=== PATIENT | male | born 1950 | race Caucasian/White ===

== ENCOUNTER → 2021-12-25 11:06 | Outpatient (BNVA) | payer OTHER, SELFPAY | PROVIDERS: Visit Provider Specialist | DX: G40.109 Localization-related (focal) (partial) symptomatic epilepsy and epileptic syndromes with simple partial seizures, not intractable, without status epilepticus (principal); Z96.82 Presence of neurostimulator; Z45.42 Encounter for adjustment and management of neurostimulator | CPT/HCPCS: 95970; 99204 ==

== ENCOUNTER → 2022-02-05 12:58 | Outpatient (BNVA) | payer OTHER, SELFPAY | PROVIDERS: Visit Provider Thoracic Surgery (Cardiothoracic Vascular Surgery) | DX: Z96.89 Presence of other specified functional implants (principal) | CPT/HCPCS: 99203 ==

== ENCOUNTER 2022-02-26 05:40 | Day surgery (SDC) | payer OTHER, SELFPAY ==
[2022-02-25 14:46] VITALS: BMI 25.0
--- NOTE | 2022-02-26 05:55 | XRR_ITS ---
PROCEDURE INFORMATION: Exam: XR Chest Exam date and time: 02/26/2022 6:36 AM Age: 71 years old Clinical indication: Screening exam; Pre-operative exam; Cardiovascular screening; Prior surgery; Surgery type: Vns; Additional info: Vns generator exchange TECHNIQUE: Imaging protocol: Radiologic exam of the chest. Views: 1 view. Other technique: Frontal portable upright view of the chest. COMPARISON: CR XR chest 2V* [id number] 07/03/2015 1:47 PM FINDINGS: Tubes, catheters and devices: Left cervical neural stimulator. Lungs: Mild left lateral basilar linear subsegmental atelectasis/scarring. The lungs are otherwise peripherally clear bilaterally. The pulmonary vasculature is normal. Pleural spaces: No pleural effusion. No pneumothorax. Heart/Mediastinum: The heart is normal in size and contour. Mediastinum: Stable. Bones/joints: Stable. XR/XR chest 1V portable [id number] IMPRESSION: Mild left lateral basilar linear subsegmental atelectasis/scarring.
[2022-02-26 06:05] VITALS: BP 139/79; PULSE 65; RESP 18; TEMP 36.7; O2SAT 97
--- NOTE | 2022-02-26 06:23 | W.PM.OPSUD ---
Surgery/Procedure H&P Update DATE OF PROCEDURE: February 26, 2022 DATE H&P PERFORMED: 02/05/22 H&P UPDATE INFORMATION: I have reviewed H&P completed within last 30 days, I have examined patient prior to procedure and No changes to prior documentation PREOP DIAGNOSIS: Vagal nerve stimulator generator end of service PLANNED PROCEDURE: Operation Date: 02/26/22 07:00 Proposed Procedures p VNS Generator Exchange/G40.909 [id number](Not Applicable) - Lamont Dimas MD
[2022-02-26] MEDS: sodium chloride 0.9% 1,000 ML 30 ML IV (06:30)
[2022-02-26 06:42] LABS: Basophils % 0.5 %; Eosinophils # 0.2 10^3/uL (0.0-0.8); Eosinophils % 3.5 %; Hematocrit 45.2 % (42.0-52.0); Hemoglobin 14.8 g/dL (11.7-16.6); Lymphocytes # 1.7 10^3/uL (0.8-4.8); Lymphocytes % 25.6 %; Mean Corpuscular HGB Conc 32.7 g/dL (30.0-36.0); Mean Corpuscular Hemoglobin 31.1 pg (28.0-34.0); Mean Platelet Volume 9.8 fL (7.4-10.4); Monocytes # 0.7 10^3/uL (0.2-0.9); Monocytes % 10.6 %; Neutrophils # 3.88 10^3/uL (1.8-7.7); Neutrophils % 59.3 %; Nucleated Red Blood Cells % 0 %; Platelet Count 229 10^3/cmm (130-400); Red Blood Count 4.76 10^6/uL (4.1-5.3); White Blood Count 6.5 10^3/uL (4.0-10.0)
[2022-02-26 07:01] LABS: Blood Urea Nitrogen 21 mg/dL (8-23); Calcium 9.2 mg/dL (8.5-10.5); Carbon Dioxide 24 mmol/L (22-29); Chloride 106 mmol/L (98-107); Glomerular Filtration Rate 59.9 mL/min (90-130); Glucose 90 mg/dL (65-115); Osmolality Calculated 293 mOsm/kg (285-295); Sodium 140 mmol/L (136-145)
[2022-02-26] MEDS: ceFAZolin 2,000 MG in sodium chloride 0.9% (plus) 50 ML 100 MG IV (07:05)
--- NOTE | 2022-02-26 07:05 | ANES.PREANE2 ---
Pre-Anesthetic Assessment Height/Weight: Height 1.65 m Weight 68.039 kg Temp Pulse Resp BP Pulse Ox O2 Del Method 98.0 F 65 18 139/79 97 02/26/22 06:05 02/26/22 06:05 02/26/22 06:05 02/26/22 06:05 02/26/22 06:05 02/26/22 06:10 Preop Diagnosis: Vagal nerve stimulator generator end of service Operation Date: 02/26/22 07:00 Proposed Procedures p VNS Generator Exchange/G40.909 [id number](Not Applicable) - Lamont Dimas MD Familial anesthetic complications: None Was Beta Tonio taken within 24 hours: N/A Was Clonidine taken within 24 hours: N/A Last intake: Intake Last Liquid Date 02/25/22 Last Liquid Time 20:00 Last Solid Date 02/25/22 Last Solid Time 19:00 Social No alcohol and No tobacco former smoker Exam alert, oriented x 3, clear to auscultation bilaterally and regular rate & rhythm Airway Mallampati: Class II Dentition: false CV/HEM Hypertension Metabolic Hyperlipidemia Neuropsych Seizure Anesthetic Plan ASA status: 3 Anesthesia: MAC Risk of > 500 ml blood loss (7ml/kg in children): No Medications/Allergies Home Medications Medication Instructions Recorded Confirmed Last Taken Type aspirin 81 mg tablet,delayed 81 mg PO DAILY 12/25/21 02/25/22 02/18/22 History release cetirizine 10 mg tablet 10 mg PO DAILY PRN Allergy Symptoms 12/25/21 02/26/22 02/25/22 History finasteride 5 mg tablet 5 mg PO DAILY 12/25/21 02/26/22 02/25/22 History lamotrigine 200 mg tablet 200 mg PO BID 12/25/21 02/26/22 02/25/22 History (Lamictal) simvastatin 20 mg tablet 20 mg PO DAILY 12/25/21 02/26/22 02/25/22 History amlodipine 2.5 mg tablet 7.5 mg PO DAILY 02/05/22 02/26/22 02/25/22 History levetiracetam 1,000 mg tablet 1,500 mg PO BID 02/05/22 02/26/22 02/25/22 History (Keppra) memantine 10 mg tablet (Namenda) 20 mg PO BID 02/05/22 02/26/2202/25/22 History polyethylene glycol 3350 17 4 g PO DAILY PRN Diarrhea 02/05/22 02/25/22 Unknown History gram/dose oral powder Allergies Allergy/AdvReac Type Severity Reaction Status Date / Time No Known Allergies Allergy Unverified 02/05/22 13:47 [facility] Anesthesia Social History Smoking and tobacco status: former smoker Quit status (tobacco): has quit using tobacco Year quit tobacco: 2017 smoked 3/4 pack Former quit date comment: Smoked 50 years Alcohol intake: former Lives independently: Yes Household members: other Housing: House Marital status: / Number of children: 2 service: Yes Pets and animals: No Data Anesthesia : 02/26/22 06:30 02/26/22 06:30 Short CBC 02/26/22 Range/Units 06:30 WBC 6.5 (4.0-10.0) 10^3/uL Hgb 14.8 (11.7-16.6) g/dL Hct 45.2 (42.0-52.0) % MCV 95.0 H (80-94) fl Plt Count 229 (130-400) 10^3/cmm Neut % (Auto) 59.3 % Neut # (Auto) 3.88 (1.8-7.7) 10^3/uL BMP 02/26/22 06:30 Sodium 140 Potassium 4.0 Chloride 106 Carbon Dioxide 24 BUN 21 Creatinine 1.2 Glucose 90 Calcium 9.2 Cardiac Studies: No Data to Display
[2022-02-26 07:06] LABS: Add Urine Microscopic? NO; Charge for UA Resulting for Rev
[2022-02-26] MEDS: ceFAZolin 1,000 mg SDV 1000 MG IRRIGATION (07:31)
[2022-02-26] MEDS: lidocaine 1% INJ 20 mL SUBCUT (07:31)
[2022-02-26 07:39] LABS: Bilirubin Urine Neg (Negative); Blood Urine Neg (Negative); Glucose Urine UA Norm (Normal); Ketones Urine 1+ (Negative); Leukocyte Esterase Urine Negative (Negative); Nitrate Urine Negative (Negative); Protein Urine Neg (Negative); Urine Appearance Clear (CLEAR); Urine Color Yellow (Yellow); Urobilinogen Urine Norm (Negative); pH Urine 5 (5-7)
--- NOTE | 2022-02-26 08:09 | PM.OP ---
Operative Report Date of procedure: February 26, 2022 Pre-op diagnosis: Preop Diagnosis Vagal nerve stimulator generator end of service Procedure done: Vagal nerve stimulator generator exchange Implants: Vagal nerve stimulator generator Specimens removed/disposition: Old vagal nerve stimulator generator Surgeon: Lamont Dimas Anesthesia: MAC and Local (1% lidocaine plain) Complications: None Condition: stable Disposition: same day Brief History: Mr. Monzon is a 71-year-old gentleman referred to our service by Dr. Paulson for VNS generator exchange with his current device near end of service. This was originally implanted September 04, 2015. Rationale for generator exchange was carefully discussed. Proper consents were reviewed and signed. Procedure: Mr. Monzon was taken the operating room suite and Positioned in the Supine Position. He Underwent IV Conscious Sedation Anesthesia Monitoring. His Entire Left Upper Chest Was Sterilely Prepped and Draped. Appropriate Timeout Was Completed and Confirmed. 1% Lidocaine Was Infiltrated through the Old Incision Site of His Prior Generator Implantation. #15 Scalpel Blade Was Utilized to Incise the Skin through the Subtendinous Tissues to near the Pseudocapsule. Capsule Was Then Carefully Opened with a #15 Scalpel Blade and Metzenbaum Scissors Exposing the Generator. Care Was Taken to Protect the lead. Old generator was delivered. It was disengaged from lead and new generator was brought into the field and connected. On field interrogation was then performed confirming appropriate function with residual parameters programmed into the new device. Device was placed into the pocket. Wound was irrigated with antibiotic solution. Hemostasis confirmed. Wound was then closed with 2 layer of 3-0 Vicryl suture with the skin being reapproximated with 4-0 Monocryl suture. Dermabond was applied to the skin. Sterile pressure dressing was then applied and secured. Mr. Monzon, tolerated procedure well. He was awakened from IV conscious sedation and transported back to the Outpatient Surgery department in stable condition. I did agency legal counsel with his daughter at completion of the procedure. [employer] VNS Generator: Model # 1000 Serial #: [id number] Lead impedance 2346 ohms Auto stimulation threshold 30% Frequency 20 Hz Duty 12% On: 21 seconds off: 3 minutes
[2022-02-26 08:19] VITALS: BP 144/83; PULSE 61; RESP 14; TEMP 36.5; O2SAT 96
[2022-02-26 08:24] VITALS: BP 151/81; PULSE 57; RESP 15; O2SAT 95
[2022-02-26 08:27] VITALS: BP 150/82; PULSE 59; RESP 14; O2SAT 95
--- NOTE | 2022-02-26 14:27 | ANE.PACU2 ---
Inpatient post-anesthesia follow up: Airway intact: Yes Vital signs: Temperature 97.7 F Pulse Rate 59 Respiratory Rate 14 Blood Pressure 150/82 Pulse Oximetry 95 Oxygen Delivery Me thod Room Air Oxygen Flow Rate Fraction of Inspir ed Oxygen Hydration adequate: Yes Nausea and vomiting: No Pain level: 1 Mental status: Baseline
== END 2022-02-26 09:45 | disposition home or self-care (01) ==
PROVIDERS: PCP Specialist; Visit Provider Thoracic Surgery (Cardiothoracic Vascular Surgery)
PROC: (CPT 61885; principal; 2022-02-26 07:00)
DX: Z45.42 Encounter for adjustment and management of neurostimulator (principal); Z87.891 Personal history of nicotine dependence; I10 Essential (primary) hypertension; E78.5 Hyperlipidemia, unspecified; Z79.82 Long term (current) use of aspirin; F17.210 Nicotine dependence, cigarettes, uncomplicated
CPT/HCPCS: 61885; 36415; 71045; 80048; 81003; 85025; C1767; J0690; J2370; J3010; J7030

== ENCOUNTER → 2022-03-07 14:12 | Outpatient (BNVA) | payer OTHER, SELFPAY | PROVIDERS: PCP Nurse Practitioner Family; Visit Provider Nurse Practitioner Family | DX: Z96.89 Presence of other specified functional implants (principal) | CPT/HCPCS: 99213 ==

== ENCOUNTER → 2022-04-16 14:21 | Outpatient (BNVA) | payer OTHER, SELFPAY | PROVIDERS: PCP Nurse Practitioner Family; Visit Provider Specialist | DX: G40.109 Localization-related (focal) (partial) symptomatic epilepsy and epileptic syndromes with simple partial seizures, not intractable, without status epilepticus (principal); Z96.82 Presence of neurostimulator; Z45.42 Encounter for adjustment and management of neurostimulator | CPT/HCPCS: 95971; 99214 ==

== ENCOUNTER → 2022-10-25 14:00 | Outpatient (BNVA) | payer OTHER, SELFPAY | PROVIDERS: PCP Nurse Practitioner Family; Visit Provider Specialist | DX: G40.109 Localization-related (focal) (partial) symptomatic epilepsy and epileptic syndromes with simple partial seizures, not intractable, without status epilepticus (principal); Z96.82 Presence of neurostimulator; Z45.42 Encounter for adjustment and management of neurostimulator | CPT/HCPCS: 95971; 99214 ==

== ENCOUNTER → 2022-11-22 13:27 | Outpatient (BNVA) | payer OTHER, SELFPAY | PROVIDERS: PCP Nurse Practitioner Family; Visit Provider Specialist | DX: G40.109 Localization-related (focal) (partial) symptomatic epilepsy and epileptic syndromes with simple partial seizures, not intractable, without status epilepticus (principal) | CPT/HCPCS: 95972; 99212 ==

== ENCOUNTER → 2022-12-30 07:56 | Outpatient (BNVA) | payer OTHER, SELFPAY | PROVIDERS: Visit Provider Specialist | DX: G40.109 Localization-related (focal) (partial) symptomatic epilepsy and epileptic syndromes with simple partial seizures, not intractable, without status epilepticus; Z45.42 Encounter for adjustment and management of neurostimulator; Z96.82 Presence of neurostimulator | CPT/HCPCS: 95971; 99214 ==

== ENCOUNTER → 2023-07-01 13:37 | Outpatient (BNVA) | payer OTHER, SELFPAY | PROVIDERS: PCP Family Medicine; Visit Provider Specialist | DX: G40.109 Localization-related (focal) (partial) symptomatic epilepsy and epileptic syndromes with simple partial seizures, not intractable, without status epilepticus (principal); Z96.89 Presence of other specified functional implants; G31.84 Mild cognitive impairment of uncertain or unknown etiology | CPT/HCPCS: 99214 ==

== ENCOUNTER → 2023-09-19 12:58 | Outpatient (BNVA) | payer OTHER, SELFPAY | PROVIDERS: PCP Family Medicine; Visit Provider Specialist | DX: Z96.89 Presence of other specified functional implants (principal); G40.109 Localization-related (focal) (partial) symptomatic epilepsy and epileptic syndromes with simple partial seizures, not intractable, without status epilepticus; G31.84 Mild cognitive impairment of uncertain or unknown etiology | CPT/HCPCS: 95970; 95971; 96116; 99214; 99215 ==

== ENCOUNTER 2023-12-03 12:48 | Outpatient (CLI) | payer OTHER, SELFPAY ==
--- NOTE | 2023-12-03 12:52 | CT_ITS ---
WS: [id number] CT CALCIUM SCORE REASON FOR VISIT: HYPERTENSION; Coronary artery disease risk assessment COMPARISON: None TECHNIQUE: Noncontrast coronary CT in combination with quantitative analysis performed on a separate workstation were used to determine CACS (Agatston score) TOTAL EXAM DOSE: 47.29 mGy.cm ECG GATING: Prospective SCAN RANGE: Pulmonary artery bifurcation to Inferior aspect of heart COMPLICATIONS: None FINDINGS: Technical Quality/Examination Quality: Good Limitaiton: None OVERALL SCORES Total calcium score: 1127 Total volume score: 915 mm3 Percentile: 75th to 90th percentile ARTERY SCORES Left main coronary artery: 116 Left anterior descending artery: 368 Left circumflex artery: 61 Right coronary artery: 435 Other 147 OTHER FINDINGS: Mediastinum: Normal. Thoracic aorta: Normal caliber Lungs: Few partially visualized subcentimeter nodules in the RIGHT upper lobe measuring 3 mm. Mild ch ronic emphysematous changes. Subsegmental atelectasis in the lingula Upper Abdomen: Normal. MINIMAL: 1-10 MILD: 11-100 MODERATE: 101-400 SEVERE:>400 CT/CT heart w calcium score 51315 IMPRESSION: 1. Severe coronary artery disease with total calcium score 1127 between the 7 5th and 90th percentile for males between the ages of 70 and 74. 2. Recommend chest CT follow-up for small nodules. GRADING OF CORONARY ARTERY DISEASE (BASED ON TOTAL CALCIUM SCORE) NO EVIDENCE OF CAD: 0 calcium score
== END 2023-12-03 12:49 | disposition home or self-care (01) ==
LOC: RAD 12:48
PROVIDERS: PCP Family Medicine; Visit Provider Family Medicine
DX: E78.5 Hyperlipidemia, unspecified (principal); I25.10 Atherosclerotic heart disease of native coronary artery without angina pectoris; R91.8 Other nonspecific abnormal finding of lung field; J98.11 Atelectasis
CPT/HCPCS: 75571

== ENCOUNTER → 2024-03-24 09:25 | Outpatient (BNVA) | payer OTHER, SELFPAY | PROVIDERS: PCP Family Medicine; Visit Provider Specialist | DX: G31.84 Mild cognitive impairment of uncertain or unknown etiology (principal); Z96.89 Presence of other specified functional implants; G40.109 Localization-related (focal) (partial) symptomatic epilepsy and epileptic syndromes with simple partial seizures, not intractable, without status epilepticus | CPT/HCPCS: 95970; 96116; 99214 ==

== ENCOUNTER → 2025-03-23 10:12 | Outpatient (BNVA) | payer OTHER, SELFPAY | PROVIDERS: PCP Family Medicine; Visit Provider Specialist | DX: G40.109 Localization-related (focal) (partial) symptomatic epilepsy and epileptic syndromes with simple partial seizures, not intractable, without status epilepticus (principal); Z96.89 Presence of other specified functional implants | CPT/HCPCS: 95970; 99213 ==